=== PATIENT | male | born 1965 | race Caucasian/White ===

== ENCOUNTER 2025-06-19 10:38 | Day surgery (SDC) | payer OTHER, SELFPAY | END 2025-06-19 16:04 | disposition home or self-care (01) | LOC: GI 10:38 | PROVIDERS: ATTENDING PHYSICIAN Specialist | DX: Z12.11 Encounter for screening for malignant neoplasm of colon (principal); K57.30 Diverticulosis of large intestine without perforation or abscess without bleeding; D12.0 Benign neoplasm of cecum | CPT/HCPCS: 45385; 88305 ==